=== PATIENT | male | born 1950 | race Caucasian/White ===

== ENCOUNTER 2016-05-27 21:16 | Inpatient (IN) | payer MEDICARE ==
--- NOTE | ~2016-05-27 | CT17 ---
[facility] A Service of [facility] & [facility] RADIOLOGY TEXT RESULTS PATIENT: LIZY PROCTOR LOCATION: [facility] 313-01 : 51 UNIT #: [id number] AGE: [address]: Brittani Vazquez MD SEX: M ORDER DR: [id number] [facility] [address] [place], [place] [address] [id number] I MR#: [id number] Acc #: [id number] NAME: LIZY PROCTOR : 1950 SEX: M STUDY DATE/TIME: 05/28/2016 8:05 UNIT: CEDOF ROOM: [id number] STUDY DESCRIPTION: CT Angio Head Attending Physician: Brittani Vazquez M.D. Ordering Physician: Carrie Baires M.D. Primary Care Physician: Prasanna Green M.D. MEDICAL IMAGING REPORT This report is preliminary unless electronic signature is present EXAM CT scan of the head and neck with contrast with carotid CT angiography HISTORY Hypotension, dizziness and nausea beginning on 05/24/2016. TECHNIQUE Thin section axial imaging was obtained from the mid mediastinum to the top of head with contrast. 100 mL of Isovue was used. CT angiography was performed with thick sliding MIPs, curved planar reformats and 3-D volumetric imaging with surface shaded and volume shaded display. This CT examination was performed with one or more of the following radiation dose reduction techniques: automatic exposure control, adjustment of mA and/or kV according to patient size, and iterative reconstruction. FINDINGS Emphysema and mild apical fibrosis is noted. Extravascular structures are otherwise unremarkable. The CT angiographic images show wide patency of the great vessels. In the posterior circulation, both vertebrals are patent and approximately the same size and the basilar artery is widely patent. In the carotid circulation, there is mild plaque at both bifurcations with no stenosis by NASCET criteria. There is mild nonocclusive plaque through the carotid siphons. In the intracranial circulation, there is no evidence of aneurysm, vascular malformation or major branch vessel occlusion. IMPRESSION Mild plaque at both carotid bifurcations and both carotid siphons. No significant stenosis at the bifurcations by NASCET criteria. Widely patent posterior circulation. [facility] A Service of [facility] & [facility] RADIOLOGY TEXT RESULTS PATIENT: LIZY PROCTOR LOCATION: [facility] 313-01 : 51 UNIT #: [id number] AGE: [address]: Brittani Vazquez MD SEX: M ORDER DR: STAT * RESULT Dictated by... Reynaldo Jauregui M.D. THIS IS AN ELECTRONICALLY VERIFIED REPORT Reynaldo Jauregui M.D. at 05/29/2016 10:45 AM TREY/teressa TD: 05/28/2016 09:12 JOB #: [id number] MEDICAL IMAGING REPORT Page 1 of 1 COPY
--- NOTE | ~2016-05-27 | MR18 ---
[facility] A Service of [facility] & [facility] RADIOLOGY TEXT RESULTS PATIENT: LIZY PROCTOR LOCATION: [facility] 313-01 : 51 UNIT #: [id number] AGE: [address]: Brittani Vazquez MD SEX: M ORDER DR: [id number] [facility] [address] [place], [place] [address] [id number] I MR#: [id number] Acc #: [id number] NAME: LIZY PROCTOR. : 1950 SEX: M STUDY DATE/TIME: 05/28/2016 10:35 [facility] STUDY DESCRIPTION: MR Brain Wo Contrast Attending Physician: Brittani Vazquez M.D. Ordering Physician: Carrie Baires M.D. Primary Care Physician: Prasanna Green M.D. MRI CENTER REPORT This report is preliminary unless electronic signature is present. EXAM MRI of the brain without. HISTORY Subacute CVA. History of hypertension. Seen for stroke 3 days ago at [facility]. No cancer history. COMMENT MRI of the brain was performed without contrast, using routine 1.5-T imaging technique. There is a focus of abnormally restricted diffusion seen in the left hemipons, corresponding to the low attenuation area on the CT scan from 05/27/2016. 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 There is no evidence for hemorrhagic transformation. A small amount of susceptibility in the left frontal cortex anteromedially is consistent with old blood product or mineral deposition. There is no extraaxial fluid collection. There is considerable white matter signal abnormality with [id number] foci of signal abnormality in the subcortical deep and periventricular white matter. There is also preexisting patchy signal abnormality in the sarthak bilaterally. Findings are all probably due to small vessel disease, particularly given hypertension history. Probably a small amount of cortical malacia in the left frontal lobe associated with the area of susceptibility. Particularly focal white matter lesion seen at the left side of the genu of the corpus callosum, chronic and appreciated on the earlier head CT, also. Prominent perivascular spaces noted. The major intracranial flow voids are maintained. The mastoid air cells are clear. There is partial opacification of the ethmoid air cells, with mucosal thickening and some mucosal thickening in the sphenoid sinuses, frontal sinuses and maxillary sinuses, but no scattered air-fluid level. There is no intracranial mass effect. No Chiari I malformation. [facility] A Service of [facility] RADIOLOGY TEXT RESULTS PATIENT: LIZY PROCTOR LOCATION: [facility] 313-01 : 51 UNIT #: [id number] AGE: [address]: Brittani Vazquez MD SEX: M ORDER DR: seen is degenerative disease in the visualized upper cervical spine. IMPRESSION Findings are consistent with a recent small vessel ischemic insult to the left hemipons, measuring about 1.4 x 0.8 cm in dimension. No hemorrhagic transformation is appreciated. There is no significant intracranial mass effect. Findings superimposed upon a background of probable preexisting sequelae of small vessel disease. Details above. STAT * RESULT Dictated by... Alexia Denise M.D. THIS IS AN ELECTRONICALLY VERIFIED REPORT Alexia Denise M.D. at 05/28/2016 2:44 PM EARLINE/manjit TD: 05/28/2016 12:16 JOB #: [id number] MRI CENTER REPORT Page 1 of 1 COPY
--- NOTE | ~2016-05-27 | EKG ---
PATIENT: LIZY PROCTOR UNIT #: [id number] Ventricular Rate: 64 BPM Atrial Rate: 64 BPM P-R Interval: 132 ms QRS Duration: 88 ms Q-T Interval: 394 ms QTC Calculation(Bezet): 406 ms P [place]: 39 degrees Calculated R [place]: 37 degrees Calculated T [place]: 75 degrees Diagnosis Line: Normal sinus rhythm Diagnosis Line: T wave abnormality, consider lateral ischemia Diagnosis Line: Abnormal ECG Diagnosis Line: No previous ECGs available Diagnosis Line: Confirmed by MADDISON DRAKE MD ([id number]) on 05/29/2016 Diagnosis Line: 9:17:24 AM INTERPRETING MD: NOELLE HUFFMAN
--- NOTE | ~2016-05-27 | A ---
[facility] DATE: 05/29/16 Patient: LIZY PROCTOR Physician: MO Address: [address] [facility] Room/Bed: [address] [place] [address], Zip: [place] [address] Admit Date: 05/28/16 Date of : 52 Height: 5 6 Weight: 149 67.8 NUTRITIONAL ASSESSMENT: REASON: STROKE PROTOCOL Diet: Heart healthy Assessment: Chart reviewed, events noted. RD consulted for stroke protocol. Pt is ordered a heart healthy diet. RD spoke with the pt at bedside. Pt denies having any chewing/ swallowing difficulties, or weight loss. RD provided heart healthy diet education, explaining the importance of following the diet at home. Pt voiced a desire to make healthy changes; however, he demonstrated a lack of knowledge regarding making heart-healthy choices, and did not seem to be retaining the information explained by RD. RD provided heart healthy diet information, including a list of foods to avoid and foods that are recommended. Pt appreciated the information. Recommendations: 1. Pt would benefit from seeing an outpatient RD for further diet education and accountability. Please consult RD for any further nutritional needs. Respectfully, CAROLYN VIGIL RD, LD [facility] cc: client file
--- NOTE | ~2016-05-27 | DS ---
Unit #: [id number] #: [id number] Patient: LIZY PROCTOR [id number] [address] [address] [id number] I MR#: [id number] NAME: LIZY PROCTOR. ROOM: [facility] Age: 65 Sex: M Admission Date: 05/28/2016 : 1950 Discharge Date: 05/30/2016 Attending Physician: Brittani Vazquez M.D. Primary Care Physician: Prasanna Green M.D. DISCHARGE SUMMARY DISCHARGE DIAGNOSES 1. Acute to subacute ischemic left pontine stroke: Concern for embolic with abnormal FRANK showing fresh large atheroma. Needs Coumadin and Lovenox. 2. Acute systolic heart failure, ejection fraction 40% to 45%: Patient is refusing cardiac workup. He is leaving AMA. 3. Large fresh atheroma on FRANK: Needs warfarin and Coumadin. 4. Hypertension. 5. Diabetes mellitus type 2. 6. Chronic obstructive pulmonary disease. 7. Smoking. 8. Hypokalemia. 9. Abnormal electrocardiogram showing anterolateral T wave inversions: Patient needs either stress test or cardiac cath but patient is not staying until cardiology sees him. He is leaving AMA. 10. Chronic pain. 11. History of collapsed lung in 1949. CONSULTATION 1. Dr. Ramirez. 2. Dr. Evans. PROCEDURE The patient had a FRANK which shows no vegetation, severe large calcified fresh atheroma present, abnormal EKG. Anterolateral T wave inversions present. OTHER LAB DATA Glucose 117, sodium 139, potassium 3.3, creatinine 1.2. CT angio head and neck shows mild plaque at both carotid bifurcations and both carotid siphons. No significant stenosis. Hemoglobin A1c 5.2, vitamin B12 is 147. Folate is 16.7. MRI of the brain shows recent small vessel ischemic insult to the left sarthak. No hemorrhagic transformation. Chronic small vessel disease present. TSH 1.29. ALLERGIES None. Unit #: [id number] #: [id number] Patient: LIZY PROCTOR DISCHARGE MEDICATIONS Please note - patient is leaving AMA: 1. Lovenox 60 mg subcu b.i.d. 2. Coumadin 5 mg p.o. daily. 3. Trazodone 100 daily. 4. Lipitor 80 daily. 5. Aspirin 81 daily. 6. Mobic 7.5 p.o. daily. 7. Vitamin B12 1000 mcg p.o. daily. 8. Lisinopril 5 mg p.o. daily. HOSPITALIZATION COURSE 65-year-old male admitted because of right upper extremity weakness and imbalance. Right upper extremity weakness secondary to acute to subacute ischemic left pontine stroke, possible emboli: The patient had a FRANK which shows fresh large atheroma. The patient is started on Lovenox and Coumadin and Lipitor 80 mg. Acute systolic heart failure, ejection fraction 40% to 45%: Patient refusing any cardiac workup. Abnormal electrocardiogram with T wave abnormalities in anterolateral areas: Patient refusing cardiac workup. Hypokalemia: Replace with p.o. potassium. The patient was started on lisinopril for acute systolic heart failure. He does need to follow with cardiology of his choice in two weeks time. Follow with Dr. Keenan Colvin in six to eight weeks time. The patient is to take Lovenox until his INR is greater than or equal to 2.0 and after that stop it. Continue taking Coumadin 5 mg daily. Patient needs LFTs in six weeks time because he is on high dose Lipitor. He had (1) instructions but patient is leaving [facility], please note. Discussed with Dr. Evans. She agrees to patient leaving [facility] because she thinks the patient needs cardiac workup in the hospital. He has a high risk because of acute systolic heart failure, abnormal EKG and large atheroma. The patient is noncompliant with medical advice and medications. Discharge time taken is 32 minutes. Dictated by... Myke Wilson TD: 05/30/2016 12:28 JOB #: [id number] Unit #: [id number] #: [id number] Patient: LIZY PROCTOR DISCHARGE SUMMARY Page 1 of 1 X Brittani Vazquez MD DISCHARGE SUMMARY
--- NOTE | ~2016-05-27 | CO ---
Unit #: [id number] #: [id number] Patient: LIZY PROCTOR [id number] [facility] [address] [place], [place] [address] [id number] I MR#: [id number] NAME: LIZY PROCTOR. ROOM: 313 Age: 65 Sex: M Admission Date: 05/28/2016 : 1950 Attending Physician: Brittani Vazquez M.D. Primary Care Physician: Prasanna Green M.D. CONSULTATION REPORT REASON FOR CONSULTATION Abnormal CT with possible left pontine infarct. PATIENT IDENTIFICATION This is a 65-year-old, right-handed, white male, who was evaluated in room 313 at [facility]. SOURCE OF INFORMATION The patient and medical records. PROBLEM LIST 1. COPD. 2. Chronic back pain. 3. Collapsed lung in 1949. 4. Wallenberg type syndrome. 5. Hernia repair. 6. History of recurring kidney stones requiring stent. 7. Tobacco abuse. HISTORY OF PRESENT ILLNESS This is a very pleasant 65-year-old gentleman, who actually was sent back by his primary care physician, Dr. Villalba. The history is that he started having some problems on Thursday. He went to the ER at [place]. He was evaluated and they told him there is a concern that he may have a stroke and they want to transfer him to [facility]. He saw 3 physicians there, but he reports that nobody told him what was wrong and they kept on assessing him and he left against medical advice. So when he visited Dr. Villalba, he insisted that he be admitted and further workup. The workup was initiated. He does have left lateral pontine infarct and his symptoms were mostly ataxic on the right side, which have significantly improved. His risk factors are hypertension, smoking, and hyperlipidemia. He has no new symptoms and doing very well. His ataxia is also much better. There is nothing suggesting other weakness or sensory changes right now. No other falls or injuries, seizures, migraines. Usually does not take aspirin. PAST MEDICAL HISTORY As discussed above. Unit #: [id number] #: [id number] Patient: LIZY PROCTOR PAST SURGICAL HISTORY As discussed above. ALLERGIES None. HOME MEDICATIONS Mobic, trazodone 100 mg, Vicodin 7.5. FAMILY HISTORY Aneurysm. SOCIAL HISTORY The patient is living with his girlfriend, smokes about one pack of tobacco daily, does not drink. REVIEW OF SYSTEMS GENERAL: Mostly as discussed in history of present illness. The ataxia, nothing major. No sleep issues, fever, chills, rigor, or sweats. HEENT: No headaches. No double vision, earache, runny nose, or sore throat. CARDIOVASCULAR: No chest pain, clubbing, cyanosis, orthopnea, or palpitation. PULMONARY: No shortness of air, cough, or expectoration. ABDOMEN: No nausea, vomiting, diarrhea, or constipation. GENITOURINARY: No genitourinary symptom. EXTREMITIES: Problems better. BACK: No back problem anymore. PSYCHIATRIC: No psychiatric issue. NEUROLOGIC: New stroke. No other hematologic, dermatologic, or endocrine problems. PHYSICAL EXAMINATION VITAL SIGNS: Temperature 97.3, pulse 75, respirations 18, blood pressure 164/106, weight of 155 pounds, BMI was 25, O2 saturations were 98%. NEUROLOGIC: The patient is awake. He is alert. He is oriented. He can name and he can follow commands. No right or left confusion. No finger agnosia. Cranial nerve examination demonstrates full prieto of vision to confrontation. Eye movements are conjugate. I did not see any ptosis. I did not see any nystagmus. Extraocular movements are intact. Sensation on the face and scalp are normal. Strength of muscles of facial expression normal. Hearing seemed to be intact bilaterally. Tongue was midline. Uvula was midline. Palate elevation was normal. Head turning and shoulder shrugs were unremarkable. Motor examination demonstrated normal bulk, tone. Strength was essentially 5- on the right side, but that may be just from proximal weakness, but otherwise unremarkable strength exam. Sensory examination intact for soft touch and pain sensation. No extinction was seen. Romberg was negative. His gait exam showed otherwise benign. Reflexes 1/4. Toes are equivocal. Unit #: [id number] #: [id number] Patient: LIZY PROCTOR DIAGNOSTIC STUDIES IMAGING STUDIES: Reviewed. CTA was unremarkable. LABORATORY RESULTS: His random glucose was 87 to 102. Chemistry profile otherwise looked okay. Triglycerides 101, LDL is 106. CBC was unremarkable. CARDIOVASCULAR STUDIES: Echo was in process. IMPRESSION This is a very interesting 65-year-old gentleman, who has these multiple infarcts. He may have a Wallenberg type syndrome, but I am not seeing the full extent of it and his echo may be abnormal, so based on that I may have to do further workup, sometimes we can see an embolic type phenomenon with these strokes, otherwise he does have small vessel disease. I will put him on aspirin and Lipitor and smoking cessation and further workup will be based on what we find. Clinically, he is doing very well. One option would be if the echo is read as abnormal that I do further workup and that can be done as outpatient because this gentleman really does not want to stay in the hospital, but I will keep you informed. Call me for any other questions, issues, or concerns. Dictated by... Myke Lopez/gilles TD: 05/29/2016 01:35 JOB #: [id number] CONSULTATION REPORT Page 1 of 1 X Barbara Ramirez MD CONSULTATION REPORT
--- NOTE | ~2016-05-27 | CT71 ---
[facility] A Service of [facility] & [facility] RADIOLOGY TEXT RESULTS PATIENT: LIZY PROCTOR LOCATION: [facility] : 51 UNIT #: [id number] AGE: [address]: Preston Gordon DO SEX: M ORDER DR: [id number] [facility] [address] [place], [place] [address] [id number] MR#: [id number] Acc #: [id number] NAME: LIZY PROCTOR : 1950 SEX: M STUDY DATE/TIME: 05/27/2016 21:36 UNIT: [facility] ROOM: STUDY DESCRIPTION: CT Head Wo Contrast Attending Physician: Preston Gordon D.O. Ordering Physician: Preston Gordon D.O. Primary Care Physician: Prasanna Green M.D. MEDICAL IMAGING REPORT This report is preliminary unless electronic signature is present EXAM Head CT without, 05/27/2016 HISTORY Hypertension, sent by primary care doctor. Seen at [facility] for a stroke 3 days ago. Patient still dizzy and weak. TECHNIQUE This CT exam was performed with one or more of the following radiation dose reduction techniques: automatic exposure control, adjustment of mA and/or kV according to patient size, and iterative reconstruction. COMMENT Routine noncontrast head CT is reviewed. The comparison is from 05/24/2016. There is no displaced calvarial fracture. The mastoid air cells are clear. There is partial opacification of the ethmoid air cells and mild mucosal thickening in the sphenoid sinuses, and frontal sinuses with small air-fluid levels in the ethmoid air cells. Please correlate for clinical concern for acute sinusitis. This is worse on comparison to prior. There is no evidence for acute intracranial hemorrhage or extraaxial fluid collection. There is a new focus of abnormal low-attenuation in the left hemipons about 9 mm in diameter concerning for an interval small vessel insult. Please correlate further clinically and again, this is best pursued with an MRI if the patient is a candidate. Also redemonstrated is mild white matter low attenuation most confluent in the left frontal periventricular white matter, probably due to preexisting small vessel disease. This is not appreciably changed. No intracranial mass effect. IMPRESSION 1. Findings are most consistent with the interval development of a small STS. [facility] A Service of [facility] RADIOLOGY TEXT RESULTS PATIENT: LIZY PROCTOR LOCATION: [facility] : 51 UNIT #: [id number] AGE: [address]: Preston Gordon DO SEX: M ORDER DR: vessel insult left hemipons, about 9 mm in dimension. No hemorrhagic transformation is appreciated. The patient is best further assessed with an MRI if a candidate. 2. Redemonstration of chronic white matter disease, probably due to small vessel disease. No intracranial mass effect. No acute intracranial hemorrhage. 3. Worsening paranasal sinus disease with small air-fluid levels in the ethmoid air cells consistent with a component of acute sinusitis. STAT * RESULT Dictated by... Alexia Denise M.D. THIS IS AN ELECTRONICALLY VERIFIED REPORT Alexia Denise M.D. at 05/27/2016 11:07 PM EARLINE/nancy TD: 05/27/2016 22:04 JOB #: [id number] MEDICAL IMAGING REPORT Page 1 of 1 COPY
--- NOTE | ~2016-05-27 | HP ---
Unit #: [id number] #: [id number] Patient: LIZY PROCTOR [id number] [address] [place], [place] [address] [id number] I MR#: [id number] NAME: LIZY PROCTOR. ROOM: 05566 Age: 65 Sex: M Admission Date: 05/28/2016 : 1950 Attending Physician: Carrie Baires M.D. Primary Care Physician: Prasanna Green M.D. HISTORY AND PHYSICAL CHIEF COMPLAINT Subacute left pontine CVA. HISTORY This pleasant 65-year-old male with likely COPD, chronic back pain, is admitted for a subacute left pontine CVA. The patient was in his usual state of health until three days prior to admission when he developed a sensation of imbalance with right arm incoordination and some difficult walking on the right, associated with slurred speech. He went to [facility] emergency department who sent him to [facility]. The patient left AMA as he was not told what was wrong with him. He continues with symptoms and saw Dr. Mcdermott today in his office. Blood pressure was noted to be elevated and the patient was sent to this emergency department. CT scan shows a left pontine CVA, along with small vessel ischemic disease. The patient was given aspirin in the ER, does not usually take aspirin. Denies visual symptoms, swallowing difficulties, or any other symptoms with the above. PAST MEDICAL HISTORY 1. COPD. 2. Chronic back pain. 3. Collapsed lung in the 1950s. 4. Appendectomy. 5. Tonsillectomy. 6. Hernia repair. 7. History of recurrent kidney stones requiring stents. ALLERGIES No known drug allergies. HOME MEDICATIONS Mobic 7.5 mg daily; trazodone 100 mg q.h.s.; and Vicodin 7.5 q.6 hours as needed. FAMILY HISTORY Aneurysm. SOCIAL HISTORY The patient lives with his girlfriend. He smokes one pack per day of tobacco, does not drink alcohol. REVIEW OF SYSTEMS Notable for slurred speech, imbalance, right arm incoordination, tobacco Unit #: [id number] #: [id number] Patient: LIZY PROCTOR use, COPD, above mentioned surgeries, chronic back pain. Other systems were reviewed and are negative. PHYSICAL EXAMINATION GENERAL: Pleasant 65-year-old male currently in no acute distress. VITAL SIGNS: Temperature 98.6, pulse 88, respirations 16, blood pressure 147/95, O2 saturation 100% on room air. HEENT: Eyes - PERRLA. Extraocular movements intact. Pharynx is benign. NECK: Supple without adenopathy or thyromegaly. CHEST: Clear. CARDIAC: Normal S1 and S2 without S3, S4 or murmur. ABDOMEN: Bowel sounds are present. No hepatosplenomegaly, tenderness, or masses. EXTREMITIES: Without clubbing, cyanosis or edema. Pedal pulses are present. NEUROLOGIC: Patient is awake, alert, and oriented. Cranial nerves are intact except that speech is slightly slurred. He has slight problems with ogct-ig-lkak on the right. Normal rhauuj-nc-xkjy, negative pronator drift, plus 5/5 strength throughout. DIAGNOSTIC STUDIES LABORATORY STUDIES: Hematocrit 39.6, normal white count and platelet count. SMA 12 is normal. Cardiac markers are negative. Urinalysis is normal. IMAGING STUDIES: Head CT - left sarthak CVA, small vessel ischemic disease. ASSESSMENT 1. Subacute left pontine CVA with likely small vessel disease as an etiology. 2. New hypertension. 3. Tobacco use. 4. Likely underlying COPD. 5. Chronic pain. PLANS 1. Aspirin. 2. Lisinopril if blood pressure remains elevated. 3. CTA of the head and neck, obtain echo, lipid profile, MRI of the brain, and thyroid function test. 4. Neurology consultation. 5. Smoking cessation counseling. 6. SCDs for DVT prophylaxis. Dictated by Carrie Baires M.D. AML/ruth ann TD: 05/28/2016 05:02 JOB #: [id number] CC: John Mcdermott M.D. Unit #: [id number] #: [id number] Patient: LIZY PROCTOR HISTORY AND PHYSICAL Page 1 of 1 X Carrie Baires MD HISTORY AND PHYSICAL
--- NOTE | ~2016-05-27 | CT23 ---
[facility] A Service of [facility] RADIOLOGY TEXT RESULTS PATIENT: LIZY PROCTOR LOCATION: [facility] 313-01 : [birth year] UNIT #: [id number] AGE: [address]: Brittani Vazquez MD SEX: M ORDER DR: [id number] [facility]. [place], [place] [address] [id number] I MR#: [id number] Acc #: [id number] NAME: LIZY PROCTOR : 1950 SEX: M STUDY DATE/TIME: 05/28/2016 8:05 UNIT: [facility] ROOM: 41626 STUDY DESCRIPTION: CT Angio Neck Attending Physician: Brittani Vazquez M.D. Ordering Physician: Carrie Baires M.D. Primary Care Physician: Prasanna Green M.D. MEDICAL IMAGING REPORT This report is preliminary unless electronic signature is present EXAM CT angiogram of the neck FINDINGS Please see CT angiogram of the head for results. STAT * RESULT Dictated by... Reynaldo Jauregui M.D. THIS IS AN ELECTRONICALLY VERIFIED REPORT Reynaldo Jauregui M.D. at 05/29/2016 10:45 AM TREY/teressa TD: 05/28/2016 09:17 JOB #: [id number] MEDICAL IMAGING REPORT Page 1 of 1 COPY
[~2016-05-27 21:16] MED LIST: LORTAB 101 TAB 10/5 PO; ULTRAM PO; VICODIN 5/500 T1 TAB PO
[2016-05-27 21:22] LABS: POC - CKMB 1.8 ng/mL (0.0-7.9); POC - TROPONIN <0.05 ng/mL (<=0.05)
[2016-05-27 21:35] LABS: BASOPHIL# 0.1 X10e3 (0-0.3); BASOPHIL% 0.9 % (0-2.5); EOSINOPHIL# 0.3 X10e3 (0-0.7); EOSINOPHIL% 3.5 % (0.0-7.0); HEMATOCRIT 39.6 % (38.0-50.0); HEMOGLOBIN 13.1 gm/dL (13.0-16.0); LYMPHOCYTE# 2.9 X10e3 (1.0-3.5); LYMPHOCYTE% 31.6 % (17.0-45.0); MEAN CELL VOLUME 94.3 FL (83-96); MEAN CORPUSCULAR HEMOGLOBIN 31.1 PG (28-34); MEAN PLATELET VOLUME 9.5 FL (6.5-11.5); MONOCYTE% 10.5 % (3.0-12.0); NEUTROPHIL# 4.9 X10e3 (1.5-7.1); NEUTROPHIL% 53.5 % (40-75); PLATELET COUNT 178 X10e3 (140-420); RED CELL DISTRIBUTION WIDTH 13.8 % (11.0-15.5); WHITE BLOOD COUNT 9.1 X10e3 (4.0-10.5)
[2016-05-27 21:38] LABS: DIFF IND NO
[2016-05-27 21:55] LABS: ALBUMIN SERUM 4.5 g/dL (3.5-5.0); ALKALINE PHOSPHATASE 48 U/L (32-92); ALT (SGPT) 15 U/L (10-40); AST (SGOT) 16 U/L (10-42); BILIRUBIN, DIRECT 0.1 mg/dL (0.0-0.2); BILIRUBIN,INDIRECT 0.9 mg/dL (0.0-0.9); BLOOD UREA NITROGEN 18 mg/dL (9-23); CALCIUM SERUM 9.1 mg/dL (8.4-10.2); CARBON DIOXIDE 26 mmol/L (22-31); CHLORIDE 103 mmol/L (100-111); GLOM FILT RATE Estimated ABOVE60 mL/min (>60); GLUCOSE FASTING 87 mg/dL (70-110); POTASSIUM 3.5 mmol/L (3.5-5.1); PROTEIN TOTAL SERUM 7.2 g/dL (6.0-8.3); SODIUM 139 mmol/L (135-145)
[2016-05-27 22:49] LABS: URINE SOURCE CLEAN CATCH
[2016-05-27 22:52] LABS: URINE APPEARANCE CLEAR; URINE BILIRUBIN NEG (NEG); URINE BLOOD NEG (NEG); URINE COLOR YELLOW; URINE GLUCOSE NEG (NEG); URINE KETONE NEG (NEG); URINE LEUKOCYTE ESTERASE NEG (NEG); URINE NITRATE NEG (NEG); URINE PROTEIN NEG (NEG); URINE SPECIFIC GRAVITY 1.012 (1.003-1.035); URINE UROBILINOGEN 0.2 MG/DL (NEG)
[2016-05-27 22:58] LABS: CULTURE INDICATED? NO
[2016-05-27] MEDS ORDERED: MOBIC PO (23:00)
[2016-05-27] MEDS ORDERED: DESYREL100 MG PO (23:00)
[2016-05-27] MEDS ORDERED: VICODIN ES 7.51 EAC1 PO (23:01)
[2016-05-28 08:02] LABS: BASOPHIL# 0.1 X10e3 (0-0.3); BASOPHIL% 1.1 % (0-2.5); EOSINOPHIL# 0.3 X10e3 (0-0.7); EOSINOPHIL% 3.7 % (0.0-7.0); HEMATOCRIT 40.8 % (38.0-50.0); HEMOGLOBIN 13.5 gm/dL (13.0-16.0); LYMPHOCYTE# 1.7 X10e3 (1.0-3.5); LYMPHOCYTE% 22.8 % (17.0-45.0); MEAN CELL VOLUME 93.6 FL (83-96); MEAN CORPUSCULAR HGB CONC 33.1 g/dL (30-36); MEAN PLATELET VOLUME 9.2 FL (6.5-11.5); MONOCYTE# 0.9 X10e3 (0-1.0); MONOCYTE% 11.2 % (3.0-12.0); NEUTROPHIL# 4.6 X10e3 (1.5-7.1); NEUTROPHIL% 61.2 % (40-75); PLATELET COUNT 176 X10e3 (140-420); RED BLOOD COUNT 4.36 X10e (3.90-5.60); RED CELL DISTRIBUTION WIDTH 13.8 % (11.0-15.5); WHITE BLOOD COUNT 7.6 X10e3 (4.0-10.5)
[2016-05-28 08:05] LABS: DIFF IND NO
[2016-05-28 08:35] LABS: THYROID STIMULATING HORMONE 1.29 uIU/ml (0.34-5.60)
[2016-05-28 08:36] LABS: BLOOD UREA NITROGEN 15 mg/dL (9-23); BUN/CREATININE RATIO 18.75; CALCIUM SERUM 9.1 mg/dL (8.4-10.2); CARBON DIOXIDE 23 mmol/L (22-31); CHLORIDE 105 mmol/L (100-111); CHOLESTEROL 183 mg/dL (0-200); CREATININE SERUM 0.8 mg/dL (0.6-1.4); GLOM FILT RATE Estimated ABOVE60 mL/min (>60); GLUCOSE FASTING 102 mg/dL (70-110); HDL CHOLESTEROL 37 mg/dL (29-75); LDL CHOLESTEROL 106 mg/dL (-130); LDL/HDL RATIO 3 RATIO (0-4); POTASSIUM 3.7 mmol/L (3.5-5.1); SODIUM 138 mmol/L (135-145); TRIGLYCERIDES 201 mg/dL (10-160)
[2016-05-28 08:42] LABS: FREE THYROXIN (T4) 1.03 ng/dL (0.58-1.64)
[2016-05-28 16:43] LABS: FOLATE (FOLIC ACID) 16.7 ng/mL (>5.8)
[2016-05-30 08:39] LABS: CALCIUM SERUM 8.9 mg/dL (8.4-10.2); CREATININE SERUM 1.2 mg/dL (0.6-1.4); GLOM FILT RATE Estimated 63.5 mL/min (>60); POTASSIUM 3.3 mmol/L (3.5-5.1)
[2016-05-30] MEDS ORDERED: MR XX (10:16)
== END 2016-05-30 12:21 | disposition left against medical advice (07) | DRG 64 ==
LOC: CED 21:16 → C3A PCU 05-28 23:10
PROVIDERS: Emergency Medicine; Internal Medicine; Psychiatry & Neurology Neurology
PROC: B32GYZZ Computerized Tomography (CT Scan) of Bilateral Vertebral Arteries using Other Contrast (ICD-10-PCS; 2016-05-28)
PROC: B328YZZ Computerized Tomography (CT Scan) of Bilateral Internal Carotid Arteries using Other Contrast (ICD-10-PCS; 2016-05-28)
PROC: B325YZZ Computerized Tomography (CT Scan) of Bilateral Common Carotid Arteries using Other Contrast (ICD-10-PCS; 2016-05-28)
PROC: B24BYZZ Ultrasonography of Heart with Aorta using Other Contrast (ICD-10-PCS; 2016-05-28)
PROC: B24BZZ4 Ultrasonography of Heart with Aorta, Transesophageal (ICD-10-PCS; principal; 2016-05-30)
DX: I63.8 Other cerebral infarction (principal); I50.21 Acute systolic (congestive) heart failure; I10 Essential (primary) hypertension; F17.210 Nicotine dependence, cigarettes, uncomplicated; J44.9 Chronic obstructive pulmonary disease, unspecified; G89.29 Other chronic pain; M54.9 Dorsalgia, unspecified; Z87.442 Personal history of urinary calculi; G46.3 Brain stem stroke syndrome; R27.0 Ataxia, unspecified; I70.0 Atherosclerosis of aorta; I34.0 Nonrheumatic mitral (valve) insufficiency; R94.31 Abnormal electrocardiogram [ECG] [EKG]
CPT/HCPCS: 36415; 70450; 70496; 70498; 70551; 80048; 80061; 80076; 81003; 82553; 82607; 82746; 82947; 83036; 84439; 84443; 84484; 85025; 92523-GN; 92610; 93005; 93306; 93312; 94760; 97161; 97166; 99285; G8978-GP; G8979-GP; G8980-GP; G8987-GO; G8988-GO; G8999-GN; G9186-GN; J2250; J3010; J3420; Q9967

== ENCOUNTER → 2016-06-02 | Outpatient (CLI) | payer MEDICARE ==
[~2016-06-02] MED LIST changes: +COUMADIN3 MG PO; +DESYREL100 MG PO; +LIPITOR80 MG PO; +LISINOPRIL5 MG PO; +LORTAB 7.5-3251 EACH PO; +MOBIC PO; +MR XX; +VICODIN ES 7.51 EAC1 PO
--- NOTE | ~2016-06-02 | CR63 ---
[facility] A Service of [facility] RADIOLOGY TEXT RESULTS PATIENT: LIZY PROCTOR LOCATION: [facility] : [birth year] UNIT #: [id number] AGE: [address]: TIARA ALLEN APRN SEX: M ORDER DR: [id number] [facility] [address] [place], [place] [address] [id number] O MR#: [id number] Acc #: [id number] NAME: LIZY PROCTOR : 1950 SEX: M STUDY DATE/TIME: 06/02/2016 11:40 UNIT: [facility] ROOM: STUDY DESCRIPTION: CR Chest 2 View Attending Physician: Tiara Allen Np Referring Physician: Tiara Allen Np Ordering Physician: Tiara Allen Np Primary Care Physician: John Mcdermott M.D. MEDICAL IMAGING REPORT This report is preliminary unless electronic signature is present EXAM PA and lateral chest HISTORY Cough and congestion for 4 days. Asthma. FINDINGS 2 views of the chest demonstrate the cardiac size and pulmonary vascularity are normal. No airspace infiltrates or effusions are identified. Small, calcified mediastinal and bilateral hilar nodes and small calcified granulomas in the right lung. Mild hypertrophic spurring upper and lower thoracic spine. IMPRESSION No acute findings and no active disease. Dictated by... Mark Long M.D. THIS IS AN ELECTRONICALLY VERIFIED REPORT Mark Long M.D. at 06/02/2016 11:39 PM DFL/psc TD: 06/02/2016 22:53 JOB #: [id number] MEDICAL IMAGING REPORT Page 1 of 1 COPY
== END | disposition home or self-care (01) ==
LOC: CRAD 11:22
DX: J44.1 Chronic obstructive pulmonary disease with (acute) exacerbation (principal); J06.9 Acute upper respiratory infection, unspecified
CPT/HCPCS: 71020

== ENCOUNTER 2016-06-20 10:27 | Observation (INO) | payer MEDICARE ==
--- NOTE | ~2016-06-20 | EKG ---
PATIENT: LIZY PROCTOR UNIT #: [id number] Ventricular Rate: 71 BPM Atrial Rate: 71 BPM P-R Interval: 132 ms QRS Duration: 84 ms Q-T Interval: 370 ms QTC Calculation(Bezet): 402 ms P [place]: 49 degrees Calculated R [place]: 37 degrees Calculated T [place]: 67 degrees Diagnosis Line: Normal sinus rhythm Diagnosis Line: T wave abnormality, consider lateral ischemia Diagnosis Line: Abnormal ECG Diagnosis Line: When compared with ECG of 27-MAY-2016 22:28, Diagnosis Line: No significant change was found Diagnosis Line: Confirmed by WILLA GALVEZ MD ([id number]) on Diagnosis Line: 06/21/2016 4:53:22 PM INTERPRETING MD: DEB
--- NOTE | ~2016-06-20 | DS ---
Unit #: [id number] #: [id number] Patient: LIZY PROCTOR [id number] [address] [place], [place] [address] [id number] MR#: [id number] NAME: LIZY PROCTOR. ROOM: 328 Age: 65 Sex: M Admission Date: 06/20/2016 : 1950 Discharge Date: 06/21/2016 Attending Physician: Jayda Edwards M.D. Primary Care Physician: John Mcdermott M.D. DISCHARGE SUMMARY REASON FOR ADMISSION Supratherapeutic INR, hematuria. HISTORY OF PRESENT ILLNESS/HOSPITAL COURSE Patient is a very pleasant, 65-year-old male with underlying history of chronic anticoagulation secondary to aortic atheroma with recent left pontine CVA, prior history of heart failure, hypertension, and diabetes who presented secondary to being referred from his primary care physician for evaluation of supratherapeutic INR. He also stated that he was having some flank pain and hematuria. His INR was greater than 13.1 as evaluated in the emergency room. FFP was administered as well as vitamin K. This morning, his current INR now stands at 1.4. His hematuria has resolved. His laboratory studies are within normal limits. His CBC shows a hemoglobin of 9.4, likely representing his baseline. He underwent a CT abdomen and pelvis, which did show a 3.5 cm abdominal aortic aneurysm, but no other acute finding. He is otherwise ambulatory and feeling well. He is stable for discharge home. FINAL DISCHARGE DIAGNOSES 1. Supratherapeutic INR. 2. Hematuria, now resolved. 3. Fresh large aortic atheroma on chronic anticoagulation. 4. Recent left pontine cerebrovascular accident. 5. Systolic heart failure with ejection 40% to 45%, noted new in May of 2016. Patient refusing cardiac workup. 6. Hypertension. 7. Diabetes. 8. Chronic obstructive pulmonary disease. 9. Ongoing tobacco abuse. 10. Chronic pain syndrome. 11. Chronic narcotic dependence. 12. Prior history of pneumothorax. 13. Noncompliance. DISCHARGE MEDICATIONS 1. Trazodone 100 mg p.o. q.h.s. 2. Lipitor 80 mg p.o. every day. 3. Lisinopril 5 mg p.o. every day. 4. Lortab 7.5/325 one tablet p.o. q.6 p.r.n. This is a home medication. 5. Coumadin 3 mg p.o. every day. DISCHARGE INSTRUCTIONS Unit #: [id number] #: [id number] Patient: LIZY PROCTOR Patient instructed to follow up with his primary care physician in the next 3-4 days for repeat PT/INR. Dictated by... Myke Katz/[place] TD: 06/24/2016 06:55 JOB #: [id number] DISCHARGE SUMMARY Page 1 of 1 X Jared Pham MD X DISCHARGE SUMMARY
--- NOTE | ~2016-06-20 | HP ---
Unit #: [id number] #: [id number] Patient: LIZY PROCTOR [id number] [facility]. [place], [place] [address] [id number] MR#: [id number] NAME: LIZY PROCTOR ROOM: Age: 65 Sex: M Admission Date: 06/20/2016 : 1950 Attending Physician: Luc Whiteside M.D. Primary Care Physician: John Mcdermott M.D. HISTORY AND PHYSICAL CHIEF COMPLAINT Abnormal labs. HISTORY OF PRESENT ILLNESS The patient is a 65-year-old male with a past medical history of chronic anticoagulation, aortic atheroma, left pontine stroke, congestive heart failure, hypertension, diabetes, chronic obstructive pulmonary disease, chronic pain, pneumothorax and recurrent nephrolithiasis. He presented to the emergency department from his primary care physician's office for evaluation of the above. The patient was hospitalized at [facility] 05/28 through 05/30/2016 for acute to subacute left pontine stroke. FRANK showed a large fresh atheroma. He apparently left against medical advice. He was discharged on Coumadin. The patient states that he has been taking the Coumadin as prescribed. He saw his primary care physician on 06/16/2016. His INR was noted to be high at that point and he was told to stop taking the Coumadin and return to the office today. Today INR was still high and so he was sent to the emergency department for further evaluation. In the emergency department INR was greater than 13.1. FFP and vitamin K have been ordered. He is being admitted to [facility] for evaluation and further treatment. The patient does report blood in the urine that started 06/18/2016. He denies any blood in the stool or black tarry stool. He denies any chest pain. No difficulty breathing. No cough or cold symptoms. PAST MEDICAL HISTORY 1. Admission to [facility] 05/28/2016 through 05/30/2016 for acute to subacute left pontine stroke. A FRANK showed fresh large atheroma. He was discharged home on Coumadin. Ejection fraction was noted to be 40%-45%. The patient refused a cardiac workup. 2. Congestive heart failure with ejection fraction of 40%-45% per the discharge summary on 05/30/2016. 3. History of left pontine stroke with no residual deficits. 4. Hypertension. 5. Diabetes. The patient's hemoglobin A1c was 5.2 on 05/28/2016. 6. Chronic obstructive pulmonary disease with continued tobacco abuse. 7. Chronic pain, maintained on narcotics. 8. History of pneumothorax. 9. Recurrent nephrolithiasis. PAST SURGICAL HISTORY Unit #: [id number] #: [id number] Patient: LIZY PROCTOR 1. Tonsillectomy. 2. Appendectomy. 3. Hernia repair. 4. Cystoscopy with laser lithotripsy. SOCIAL HISTORY The patient lives with his girlfriend. He states that he is smoking a lot less. He is still smoking, however. He is retired. He typically walks without assistance. His code status is a full code. FAMILY HISTORY Notable for his brother having an aneurysm. ALLERGIES No known drug allergies. HOME MEDICATIONS Per the discharge summary, include 1. Lovenox 60 mg subcutaneous b.i.d. 2. Coumadin 5 mg daily. 3. Trazodone 100 mg daily. 4. Lipitor 80 mg daily. 5. Aspirin 81 mg daily. 6. Mobic 7.5 mg daily. 7. Vitamin B12 1000 mcg daily. 8. Lisinopril 5 mg daily. Home medications will need to be reviewed and verified. REVIEW OF SYSTEMS A complete review of systems is negative except as indicated in the history of present illness. The patient also reports right flank pain. The patient does have chronic back pain. It is unclear if t his is worse than his usual back pain. PHYSICAL EXAMINATION GENERAL: The patient is a male who is awake and alert, in no acute distress. VITALS: Temperature 97.6, pulse 82, respiratory rate 18, blood pressure 122/74. HEENT: The head is atraumatic. Mucous membranes are moist. NECK: Supple. Trachea midline. LUNGS: Clear to auscultation bilaterally with no increased work of breathing. HEART: Regular rate and rhythm. ABDOMEN: Soft and nontender with bowel sounds present all four quadrants. EXTREMITIES: Nontender with no pedal edema. NEUROLOGIC: The patient is awake and alert. He follows commands. PSYCHIATRIC: Mood and affect are normal. The patient is cooperative. SKIN: Skin of examined areas is warm and dry. DIAGNOSTIC STUDIES LABORATORY: CBC notable for hemoglobin 11.9, hematocrit 36.4. CMP is normal. Lipase is 25. Urinalysis notable for 2+ protein, 4+ blood with innumerable red blood cells and 2-5 white blood cells. INR is greater than 13.1. ASSESSMENT Unit #: [id number] #: [id number] Patient: LIZY PROCTOR The patient is a 65-year-old male with 1. Gross hematuria secondary to supra therapeutic INR. 2. Right flank pain. Possibly chronic. 3. Supra therapeutic INR with an INR greater than 13.1. 4. Chronic anticoagulation with Coumadin. 5. Aortic atheroma. 6. History of left pontine cerebrovascular accident with no residual deficits. 7. Congestive heart failure with an ejection fraction as noted above. 8. Hypertension. 9. Diabetes. 10. Chronic obstructive pulmonary disease with continued tobacco abuse. 11. Chronic pain, maintained on narcotics. 12. History of pneumothorax. 13. Recurrent nephrolithiasis. PLAN 1. Admit for observation to intermediate level. 2. Healthy heart, consistent carb diet. 3. Urine culture and sensitivity on urine in the lab. 4. Vitamin K 10 mg p.o. times 1 now if not already given. 5. Transfuse four units of FFP. 6. Hold Coumadin. 7. Check EKG and cardiac enzymes. 8. Low-dose sliding scale insulin with Accu-Cheks. 9. Supplemental oxygen. 10. P.r.n. duo-nebs. 11. Repeat labs in the morning, including INR. 12. SCDs for DVT prophylaxis. 13. Additional workup and consultants based on the above. Dictated by Myke Dick TD: 06/20/2016 14:23 JOB #: [id number] HISTORY AND PHYSICAL Page 1 of 1 X Jayda Edwards MD X HISTORY AND PHYSICAL
--- NOTE | ~2016-06-20 | CT4 ---
[facility] A Service of [facility] RADIOLOGY TEXT RESULTS PATIENT: LIZY PROCTOR LOCATION: [facility] 328-01 : [birth year] UNIT #: [id number] AGE: [address]: Jayda Edwards MD SEX: M ORDER DR: [id number] [facility]. [place], [place] [address] [id number] MR#: [id number] Acc #: [id number] NAME: LIZY PROCTOR : 1950 SEX: M STUDY DATE/TIME: 06/20/2016 11:03 UNIT: [facility] ROOM: STUDY DESCRIPTION: CT Abd and Pelv Wo Cont Attending Physician: Luc Whiteside M.D. Ordering Physician: Luc Whiteside M.D. Primary Care Physician: John Mcdermott M.D. MEDICAL IMAGING REPORT This report is preliminary unless electronic signature is present EXAM CT abdomen and pelvis without contrast. DATE 06/20/2016 HISTORY Right flank pain and hematuria for [address] abdomen and pelvis without contrast, 05/12/2007. PROCEDURE 3 mm noncontrast axial images through the abdomen and pelvis. Enteric contrast was not administered. Sagittal and coronal reformatted images were obtained. This CT exam was performed with one or more of the following radiation dose reduction techniques: automatic exposure control, adjustment of mA and/or kV according to patient size, and iterative reconstruction. FINDINGS ABDOMEN FINDINGS: Bilateral renovascular calcifications are present. No definite renal or ureteral stone, hydronephrosis or hydroureter is seen. The lung bases are free of consolidation. There is minimal atelectasis or scarring within the lingula. Benign calcified granuloma is present in the right lower lobe. Benign calcified granulomatous changes are present in the liver and spleen. The gallbladder, pancreas, adrenals are normal. The appendix is not definitely visualized but no pericecal inflammation is appreciated. Limited evaluation of bowel due to lack of enteric contrast but no focal [facility] A Service of [facility] RADIOLOGY TEXT RESULTS PATIENT: LIZY PROCTOR LOCATION: [facility] 328-01 : [birth year] UNIT #: [id number] AGE: [address]: Jayda Edwards MD SEX: M ORDER DR: bowel inflammation is evident. There is fusiform aneurysmal dilation of the infrarenal abdominal aorta measuring approximately 3.5 x 3.3 cm, a new finding since 2007. Tiny umbilical hernia contains only fat. PELVIS FINDINGS: Urinary bladder is partially decompressed but appears within normal limits. Prostate and rectum are normal. Degenerative disc endplate changes are present at L4-5 and L5-S1. No acute osseous abnormalities are identified. IMPRESSION 1. No acute findings in the abdomen or pelvis. 2. No urinary tract stone or hydronephrosis is seen. Bilateral renovascular calcifications are present in the renal hilar regions. 3. There is a 3.5 cm fusiform infrarenal abdominal aortic aneurysm which is a new finding since 2007. 4. The appendix is not visualized. No pericecal inflammation is appreciated. Dictated by... Marixa Sosa M.D. THIS IS AN ELECTRONICALLY VERIFIED REPORT Marixa Sosa M.D. at 06/23/2016 8:37 AM RICKEY/maría elena TD: 06/20/2016 14:13 JOB #: [id number] MEDICAL IMAGING REPORT Page 1 of 1 COPY
[~2016-06-20 10:27] MED LIST changes: -COUMADIN3 MG PO; -LIPITOR80 MG PO; -LISINOPRIL5 MG PO; -LORTAB 7.5-3251 EACH PO
[2016-06-20 11:08] LABS: URINE SOURCE CLEAN CATCH
[2016-06-20 11:12] LABS: BASOPHIL# 0.1 X10e3 (0-0.3); BASOPHIL% 0.7 % (0-2.5); EOSINOPHIL# 0.2 X10e3 (0-0.7); EOSINOPHIL% 1.6 % (0.0-7.0); HEMATOCRIT 36.4 % (38.0-50.0); HEMOGLOBIN 11.9 gm/dL (13.0-16.0); LYMPHOCYTE# 2.4 X10e3 (1.0-3.5); LYMPHOCYTE% 25.2 % (17.0-45.0); MEAN CELL VOLUME 93.2 FL (83-96); MEAN CORPUSCULAR HEMOGLOBIN 30.4 PG (28-34); MEAN CORPUSCULAR HGB CONC 32.6 g/dL (30-36); MEAN PLATELET VOLUME 9.1 FL (6.5-11.5); MONOCYTE# 0.8 X10e3 (0-1.0); MONOCYTE% 8.3 % (3.0-12.0); NEUTROPHIL# 6.1 X10e3 (1.5-7.1); NEUTROPHIL% 64.2 % (40-75); PLATELET COUNT 345 X10e3 (140-420); RED CELL DISTRIBUTION WIDTH 13.7 % (11.0-15.5); WHITE BLOOD COUNT 9.6 X10e3 (4.0-10.5)
[2016-06-20 11:13] LABS: DIFF IND NO
[2016-06-20 11:20] LABS: URINE APPEARANCE CLOUDY; URINE BILIRUBIN NEG (NEG); URINE BLOOD 4+ (NEG); URINE COLOR RED; URINE GLUCOSE NORM (NORM); URINE KETONE NEG (NEG); URINE LEUKOCYTE ESTERASE NEG (NEG); URINE NITRATE NEG (NEG); URINE PH 6.5 (5-8); URINE PROTEIN 2+ (NEG); URINE SPECIFIC GRAVITY 1.015 (1.003-1.035); URINE UROBILINOGEN NORM (NORM)
[2016-06-20 11:34] LABS: ALBUMIN SERUM 3.8 g/dL (3.5-5.0); BILIRUBIN, DIRECT 0.1 mg/dL (0.0-0.2); BILIRUBIN,TOTAL 1.1 mg/dL (0.2-2.0); GLOM FILT RATE Estimated 79.2 mL/min (>60); POTASSIUM 3.5 mmol/L (3.5-5.1); PROTEIN TOTAL SERUM 7.8 g/dL (6.0-8.3)
[2016-06-20 12:07] LABS: CULTURE INDICATED? NO; URBCS1 AUWI INNUM /[HPF] (0-2); URINE BACTERIA AUWI NEG (NEGATIVE)
[2016-06-20 12:08] LABS: URINE SQUAMOUS EPITHELIAL CELL OCCAS /[HPF]
[2016-06-20 15:00] LABS: PROTHROMBIN TIME (PATIENT) >150.0 SECONDS (9.6-11.5)
[2016-06-20 15:02] LABS: INR >13.1
[2016-06-20 15:03] LABS: PARTIAL THROMBOPLASTIN TIME 150.8 SECONDS (23.5-31.3)
[2016-06-20 15:42] LABS: %MB 1.2 % (0.0-4.0); MB 1.3 ng/ml
[2016-06-20] MEDS ORDERED: DESYREL100 MG PO (15:44)
[2016-06-20] MEDS ORDERED: LISINOPRIL5 MG PO (15:45)
[2016-06-20] MEDS ORDERED: LORTAB 7.5-3251 EACH PO (15:45)
[2016-06-20] MEDS ORDERED: LIPITOR80 MG PO (15:45)
[2016-06-21 00:12] LABS: %MB 1.2 % (0.0-4.0); MB 1.4 ng/ml
[2016-06-21 07:38] LABS: BASOPHIL# 0.1 X10e3 (0-0.3); BASOPHIL% 1.2 % (0-2.5); EOSINOPHIL# 0.2 X10e3 (0-0.7); EOSINOPHIL% 2.4 % (0.0-7.0); HEMATOCRIT 27.7 % (38.0-50.0); LYMPHOCYTE# 1.9 X10e3 (1.0-3.5); LYMPHOCYTE% 29.6 % (17.0-45.0); MEAN CELL VOLUME 92.7 FL (83-96); MEAN CORPUSCULAR HEMOGLOBIN 31.4 PG (28-34); MEAN CORPUSCULAR HGB CONC 33.8 g/dL (30-36); MEAN PLATELET VOLUME 8.7 FL (6.5-11.5); MONOCYTE# 0.7 X10e3 (0-1.0); MONOCYTE% 10.6 % (3.0-12.0); NEUTROPHIL# 3.6 X10e3 (1.5-7.1); NEUTROPHIL% 56.2 % (40-75); PLATELET COUNT 249 X10e3 (140-420); RED BLOOD COUNT 2.99 X10e (3.90-5.60); RED CELL DISTRIBUTION WIDTH 13.2 % (11.0-15.5); WHITE BLOOD COUNT 6.5 X10e3 (4.0-10.5)
[2016-06-21 07:42] LABS: HEMOGLOBIN 9.4 gm/dL (13.0-16.0)
[2016-06-21 07:43] LABS: DIFF IND NO
[2016-06-21 08:16] LABS: INR 1.4; PARTIAL THROMBOPLASTIN TIME 41.6 SECONDS (23.5-31.3); PROTHROMBIN TIME (PATIENT) 15.4 SECONDS (9.6-11.5)
[2016-06-21 08:21] LABS: BUN/CREATININE RATIO 23.75; CALCIUM SERUM 9.2 mg/dL (8.4-10.2); CREATININE SERUM 0.8 mg/dL (0.6-1.4); GLOM FILT RATE Estimated 94.4 mL/min (>60); POTASSIUM 3.9 mmol/L (3.5-5.1)
[2016-06-21] MEDS ORDERED: COUMADIN3 MG PO (12:35)
== END 2016-06-21 13:03 | disposition home or self-care (01) ==
LOC: CED 10:27 → CEDOF 14:15 → C3A PCU 22:27
PROVIDERS: Emergency Medicine; Family Medicine
DX: R31.0 Gross hematuria (principal); R79.1 Abnormal coagulation profile; T45.515A Adverse effect of anticoagulants, initial encounter; I70.0 Atherosclerosis of aorta; Z79.01 Long term (current) use of anticoagulants; I11.0 Hypertensive heart disease with heart failure; I50.20 Unspecified systolic (congestive) heart failure; E11.9 Type 2 diabetes mellitus without complications; J44.9 Chronic obstructive pulmonary disease, unspecified; Z86.73 Personal history of transient ischemic attack (TIA), and cerebral infarction without residual deficits; G89.4 Chronic pain syndrome; Z79.891 Long term (current) use of opiate analgesic; Z87.442 Personal history of urinary calculi; F17.200 Nicotine dependence, unspecified, uncomplicated; Z91.19 Patient's noncompliance with other medical treatment and regimen
CPT/HCPCS: 36430; 74176; 80048; 80076; 81003; 82550; 82553; 82947; 83690; 84484; 85025; 85610; 85730; 86900; 86901; 93005; 94640; 94760; 99291; G0378; J3430; P9059

== ENCOUNTER → 2016-07-22 | Outpatient (CLI) | payer MEDICARE ==
[~2016-07-22] MED LIST changes: +COUMADIN3 MG PO; +LIPITOR80 MG PO; +LISINOPRIL5 MG PO; +LORTAB 7.5-3251 EACH PO
--- NOTE | ~2016-07-22 | ST ---
Unit #: [id number] #: [id number] Patient: LIZY PROCTOR [id number] [place], [place] [address] [id number] O MR#: [id number] NAME: LIZY PROCTOR : 1950 SEX: M STUDY DATE/TIME: 07/22/2016 UNIT: [facility] ROOM: STUDY DESCRIPTION: Walking Lexiscan stress Attending Physician: Arlene Evans M.D. Referring Physician: Arlene Evans M.D. Primary Care Physician: John Mcdermott M.D. CARDIOLOGY REPORT PROCEDURE PERFORMED Walking Lexiscan Cardiolite stress test. REPORT Baseline EKG - Normal sinus rhythm with ventricular rate 74 beats per minute, Q waves in V1 and 2, poor R wave progression. Lexiscan is a 4-minute test with Lexiscan being injected within the first minute, followed by Cardiolite. FINDINGS 1. EKG during the test showed some nonspecific ST-T wave abnormalities in inferior and lateral leads; otherwise, unremarkable. It was noted a rare premature ventricular complex. 2. The patient had no complaints of chest pain, palpitations or dizziness. Had increased shortness of breath and fatigue, which resolved in recovery phase. 3. Maximum heart rate response was 126 beats per minute with a maximum blood pressure response of 180/104 mmHg. 4. Cardiolite was injected after Lexiscan within the first minute of the test. Radionuclide tests pending. Please correlate with nuclear images. Dictated by... Brooke NorrisRPamNPam for Myke Haider/db TD: 07/22/2016 10:23 JOB #: [id number] CARDIOLOGY REPORT Page 1 of 1 X Amy Vivar APRN CARDIOLOGY REPORT
--- NOTE | ~2016-07-22 | TH ---
Unit #: [id number] #: [id number] Patient: LIZY PROCTOR [id number] [address] [place], [place] [address] [id number] O MR#: [id number] NAME: LIZY PROCTOR : 1950 SEX: M STUDY DATE/TIME: 07/22/2016 UNIT: [facility] ROOM: STUDY DESCRIPTION: Attending Physician: Arlene Evans M.D. Referring Physician: Arlene Evans M.D. Primary Care Physician: John Mcdermott M.D. CARDIOLOGY REPORT EXAM Lexiscan Cardiolite stress test, nuclear portion. PROCEDURE Using technetium 99m labeled Cardiolite, rest and stress SPECT images were obtained. Multiple SPECT images were obtained in various views including horizontal and vertical long axis and short axis views of the left ventricle. Images were obtained by gated SPECT method. The patient was administered 10.33 mCi of Cardiolite at rest. Patient was administered 35.9 mCi of Cardiolite after Lexiscan infusion was completed. On the stress images, there is a large area of severe decreased isotope activity involving the anteroapical, inferoapical wall of the left ventricle. The rest images show a smaller area of severe decreased isotope activity involving the inferoapical wall. Comparing rest and stress images, there is a medium-sized area of anteroapical, inferoapical myocardial infarction with stress-induced ischemia involving the anteroapical wall. The left ventricular ejection fraction is calculated to be 48%. There is inferior wall hypokinesis and apical akinesis noted. The left ventricular cavity is mildly dilated both at rest and post stress. CONCLUSION 1. Suspicion for significant anteroapical, inferoapical myocardial infarction with stress-induced ischemia involving the anteroapical wall. 2. The left ventricular ejection fraction is calculated to be 58%. 3. There is inferior wall hypokinesis and apical akinesis noted. 4. The left ventricular cavity is mildly dilated both at rest and post stress. 5. High suspicion for coronary artery disease with anteroapical, inferoapical myocardial infarction and significant anteroapical lidya-infarct ischemia. Dictated by... Myke Haider TD: 07/22/2016 14:33 JOB #: [id number] Unit #: [id number] #: [id number] Patient: LIZY PROCTOR CARDIOLOGY REPORT Page 1 of 1 X Arlene Evans MD <ELECTRONICALLY SIGNED> 09/27/16 1429 CARDIOLOGY REPORT
== END | disposition home or self-care (01) ==
LOC: CNUC 07:29
DX: I25.10 Atherosclerotic heart disease of native coronary artery without angina pectoris (principal); E78.5 Hyperlipidemia, unspecified
CPT/HCPCS: 78452; 93017; A9500; J2785